=== PATIENT | female | born 1995 | race African-American/Black ===

== ENCOUNTER 2017-03-28 15:30 | Emergency (ER) | payer BC ==
[~2017-03-28] VITALS: Ht 165.1 cm; Wt 83.0 kg
[2017-03-28 15:33] VITALS: BP 124/74
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
[2017-03-28] MEDS ORDERED: Tetracaine 0.5% Opth Soln LEFT EYE ONE (16:00)
[2017-03-28] MEDS ORDERED: Fluorescein Strips LEFT EYE ONE (16:00)
[2017-03-28] MEDS ORDERED: ROBAXIN500 MG PO (16:27)
[2017-03-28] MEDS ORDERED: BACITRACIN-P28.35 GM TP (16:27)
[2017-03-28] MEDS ORDERED: IBUPROFEN600 MG ORAL (16:27)
[2017-03-28] MEDS ORDERED: Bacitracin Oint UD TOPIC ONE (16:30)
[2017-03-28] MEDS ORDERED: LANTUS SOL100 UNIT/1 SUBQ (17:24)
[2017-03-28] MEDS ORDERED: GLUCOSE TEST S1 EACH MC (17:24)
[2017-03-28] MEDS ORDERED: NOVOLOG100 UNIT/4 SQ (17:24)
[2017-03-28 17:28] VITALS: BP 127/83
[2017-03-28] MEDS ORDERED: BLOOD GLUCOSE1 EAC1 MC (17:35)
== END 2017-03-28 17:28 | disposition home or self-care (01) ==
LOC: EMR 16:00
DX: S16.1XXA Strain of muscle, fascia and tendon at neck level, initial encounter (principal); S00.81XA Abrasion of other part of head, initial encounter; E10.9 Type 1 diabetes mellitus without complications; Y09 Assault by unspecified means; Y92.9 Unspecified place or not applicable
CPT/HCPCS: 82962; 99284